=== PATIENT | female | born 1935 | race Hispanic/Latino ===

== ENCOUNTER 2018-01-20 07:45 | Day surgery (SDC) | payer MEDICARE ==
[2018-01-09 10:50] VITALS: BMI 26.6
--- NOTE | 2018-01-20 09:30 | CP.SDSHP ---
Same Day Surgery H & P - History Proposed Procedure: ercp Pre-Op Diagnosis: choledocholithiasis - Allergies Allergies: Allergies No Known Allergies Allergy (Verified 01/20/18 08:45) - Physical Exam Vital Signs: Vital Signs 01/20/18 08:10 Temperature 97.8 F Pulse Rate 60 Respiratory 19 Rate Blood Pressure 161/73 H O2 Sat by Pulse 97 Oximetry Mental Status: Alert & Oriented x3 Neuro: WNL Heart: WNL Lungs: WNL GI: WNL - {Optional Preform as Required} Abdomen: WNL - Impression Impression: choledocholithiasis. ercp Pt. Evaluated Today:Candidate for Anesthesia & Procedure: Yes - Date & Time Date: 01/20/18 Time: 09:30 Short Stay Discharge - Short Stay Discharge Admitting Diagnosis/Reason for Visit: CHOLEDOCHOLITHIASIS Disposition: HOME/ ROUTINE Referrals: Tristan Godfrey MD [Primary Care Provider] -
[2018-01-20] MEDS ORDERED: Lactated Ringer's 1,000 ML IV ONE ×2 (09:37→10:40)
[2018-01-20] MEDS ORDERED: Indomethacin 50 MG Suppository PR ONE (10:15)
[2018-01-20 11:22] VITALS: O2SAT 98
[2018-01-20] MEDS ORDERED: DiphenhydrAMINE 50 mg/ml Inj IVP STA (12:30)
--- NOTE | 2018-01-20 14:01 | RAD ---
PROCEDURE: Intraoperative Fluoroscopy. HISTORY: CBD STONE FINDINGS: Fluoroscopic assistance was provided for ERCP. Please refer to the operative report from JOSE Guerrero.
[2018-01-20 15:11] VITALS: BP 151/89; PULSE 61; RESP 18; TEMP 97.5
== END 2018-01-20 15:09 | disposition home or self-care (01) ==
LOC: C.ENDO 07:45
PROVIDERS: ATTEND Internal Medicine
DX: K80.50 Calculus of bile duct without cholangitis or cholecystitis without obstruction (principal)
CPT/HCPCS: 43262; C1726; J2405; J3010; J7120